=== PATIENT | male | born 1970 | race Caucasian/White ===

== ENCOUNTER 2018-06-29 22:34 | Emergency (ER) | payer MEDICAID ==
[~2018-06-29] VITALS: Ht 162.6 cm; Wt 71.3 kg
[~2018-06-29 22:34] MED LIST: DOCU-131 PO; OMEP-110 PO; ONDA4TAB7 PO
[2018-06-29] MEDS ORDERED: POLYTRIM OPHTH 10ML LEFTEYE STA (22:56)
[2018-06-29] MEDS ORDERED: IBUPROFEN 200 MG TABLET ONE (22:56)
[2018-06-29] MEDS ORDERED: IBUPROFEN 200 MG TABLET PO ONE (23:00)
--- NOTE | 2018-06-29 23:13 | NUR ---
ABX REQUESTED FROM PHARMACY
[2018-06-29 23:20] VITALS: BP 143/92
--- NOTE | 2018-06-29 23:33 | NUR ---
Patient given discharge instructions and they have confirmed that they understand the instructions. Patient ambulatory with steady gait.
== END 2018-06-29 23:36 | disposition home or self-care (01) ==
LOC: ED 23:05
DX: B99.8 Other infectious disease (principal); H10.89 Other conjunctivitis; F17.200 Nicotine dependence, unspecified, uncomplicated
CPT/HCPCS: 93005; 99283